=== PATIENT | female | born 1980 | race Hispanic/Latino ===

== ENCOUNTER 2018-02-01 12:51 | Emergency (ER) | payer SELFPAY ==
[2018-02-01 12:57] VITALS: BP 141/93; PULSE 80; TEMP 98; O2SAT 99
[2018-02-01 12:58] VITALS: BMI 15.6
--- NOTE | 2018-02-01 13:30 | ED PDOC ---
HPI: Psych/Substance Abuse Time Seen by Provider: 02/01/18 13:15 Chief Complaint (Nursing): Psychiatric Evaluation Chief Complaint (Provider): Psychiatric Evaluation History Per: Patient History/Exam Limitations: no limitations Current Symptoms Are (Timing): Still Present Modifying Factor(s): None Additional Complaint(s): 37 year old female presents to the ED after EMS was called to her work site just prior to arrival. Patient was laid off and reportedly started demonstrating bizarre behavior. She denies a psychiatric history. However, she reports that she was falsely accused of psychotic behavior in the past and was forcibly admitted to a psychiatric unit by her whom she is now from. At the time she was fired, the patient made the statement, "In this world run by [employer], why would anyone want to continue living in it?" Denies drug use, homicidal ideation and suicidal ideation. PMD: none provided Past Medical History Reviewed: Historical Data, Nursing Documentation, Vital Signs Vital Signs: Last Vital Signs Temp 98 F 02/01/18 12:56 Pulse 80 02/01/18 12:56 Resp BP 141/93 H 02/01/18 12:56 Pulse Ox 99 02/01/18 12:56 - Medical History PMH: No Chronic Diseases - Surgical History Surgical History: No Surg Hx - Family History Family History: States: Unknown Family Hx - Social History Drugs: Denies - Allergies Allergies/Adverse Reactions: Allergies Allergy/AdvReac Type Severity Reaction Status Date / Time No Known Allergies Allergy Verified 02/01/18 13:53 Review of Systems ROS Statement: Except As Marked, All Systems Reviewed And Found Negative Psych: Negative for: Suicidal ideation Physical Exam - Reviewed Nursing Documentation Reviewed: Yes Vital Signs Reviewed: Yes - ECG O2 Sat by Pulse Oximetry: 99 - Progress ED Course And Treament: seen by crisis d/w Dr. Mustafa d/w home Adjustment disorder Disposition - Clinical Impression Clinical Impression: Adjustment disorder - Patient ED Disposition Is Patient to be Admitted: No - Disposition Disposition: Routine/Home Disposition Time: 14:20 Condition: FAIR Instructions: Adjustment Disorder
[2018-02-01 14:39] LABS: BARBITURATES, UR NEGATIVE (NEGATIVE); BENZODIAZEPINES, UR POSITIVE (NEGATIVE); OPIATES, UR NEGATIVE (NEGATIVE); PHENCYCLIDINE, UR NEGATIVE (NEGATIVE)
== END 2018-02-01 15:24 | disposition home or self-care (01) ==
LOC: H.ER 12:51
DX: F43.20 Adjustment disorder, unspecified (principal)
CPT/HCPCS: 99282; G0480